=== PATIENT | female | born 1955 | race Caucasian/White ===

== ENCOUNTER → 2016-04-18 | Outpatient (CLI) | payer BC ==
[2016-04-18 11:22] LABS: CHCM 32.9; HDW 2.57; HGB 15.1 gm/dL (11.4-16.0); MCH 30.1 pg (25.0-35.0); MCHC 32.9 g/dL (31.0-37.0); MCV 91.5 fL (80.0-100.0); Mean Platelet Volume 6.7; RBC 5.03 m/uL (3.80-5.40); RDW 13.3 % (11.5-15.5); WBC 7.2 k/uL (3.8-10.6)
[2016-04-18 11:38] LABS: ALT 37 U/L (9-52); AST 25 U/L (14-36); Alkaline Phosphatase 83 U/L (38-126); Anion Gap 12 mmol/L; Blood Urea Nitrogen 16 mg/dL (7-17); Calcium 9.5 mg/dL (8.4-10.2); Carbon Dioxide 29 mmol/L (22-30); Chloride 102 mmol/L (98-107); Cholesterol 238 mg/dL (<200); Glucose 103 mg/dL (74-99); HDL Cholesterol 54 mg/dL (40-60); Non-African American GFR(MDRD) 57 (>60 ml/min/1.73 sqM); Potassium 4.7 mmol/L (3.5-5.1); Sodium 143 mmol/L (137-145); Total Bilirubin 0.5 mg/dL (0.2-1.3); Total Protein 7.8 g/dL (6.3-8.2); Triglycerides 160 mg/dL (<150)
== END | disposition home or self-care (01) ==
LOC: LABWHC1 10:30
PROVIDERS: ATTEND Internal Medicine
DX: I11.9 Hypertensive heart disease without heart failure (principal); E78.2 Mixed hyperlipidemia; E03.9 Hypothyroidism, unspecified
CPT/HCPCS: 36415; 80053; 80061; 84439; 84443; 85027

== ENCOUNTER → 2016-07-10 | Outpatient (CLI) | payer BC ==
--- NOTE | 2016-07-12 07:51 | MM ---
Reason for exam: screening (asymptomatic). Last mammogram was performed 1 year ago. History: Patient is postmenopausal. Physical Findings: A clinical breast exam by your physician is recommended on an annual basis and results should be correlated with mammographic findings. MG Screening Mammo w CAD Bilateral CC and MLO view(s) were taken. Prior study comparison: July 02, 2015, bilateral MG 3d screening mammo w/cad. January 28, 2014, bilateral MG screening mammo w CAD. November 13, 2012, bilateral digital screening mammo w/CAD. There are scattered fibroglandular densities. A lobulated nodule far posteriorly left breast likely represents an axillary lymph node previously not included. This can be reassessed in 6 months. ASSESSMENT: Probably benign, BI-RAD 3 RECOMMENDATION: Follow-up diagnostic mammogram of the left breast in 6 months.
== END ==
LOC: RADMAMWWP 15:11
PROVIDERS: ATTEND Internal Medicine
DX: Z12.31 Encounter for screening mammogram for malignant neoplasm of breast (principal)

== ENCOUNTER → 2016-09-19 | Outpatient (CLI) | payer BC ==
[2016-09-19 11:35] LABS: Anion Gap 11 mmol/L; Blood Urea Nitrogen 15 mg/dL (7-17); Calcium 8.9 mg/dL (8.4-10.2); Carbon Dioxide 27 mmol/L (22-30); Chloride 104 mmol/L (98-107); Cholesterol 229 mg/dL (<200); Glucose 108 mg/dL (74-99); HDL Cholesterol 51 mg/dL (40-60); Non-African American GFR(MDRD) >60 (>60 ml/min/1.73 sqM); Potassium 4.5 mmol/L (3.5-5.1); Sodium 142 mmol/L (137-145); Triglycerides 134 mg/dL (<150)
== END ==
LOC: LABWHC1 10:33
PROVIDERS: ATTEND Internal Medicine
DX: Z00.00 Encounter for general adult medical examination without abnormal findings (principal); I11.9 Hypertensive heart disease without heart failure; E78.2 Mixed hyperlipidemia; E03.9 Hypothyroidism, unspecified
CPT/HCPCS: 36415; 80048; 80061; 84439; 84443

== ENCOUNTER 2017-06-19 11:33 | Observation (INO) | payer BC ==
[2017-06-19] MEDS ORDERED: MORPHINE SULFATE/PF 10MG/10ML VL IVP STA (11:54)
[2017-06-19] MEDS ORDERED: NITROGLYCERIN OINT 1 INCH/GM PACKET TOPICAL STA (11:54)
[2017-06-19] MEDS ORDERED: ASPIRIN 81 MG PO STA (11:54)
[2017-06-19 12:15] LABS: Glucose,Whole Blood 105 mg/dL (75-99)
[2017-06-19 12:23] LABS: Basophils % (A) 0 %; Eosinophils # (A) 0.4 k/uL (0-0.7); Eosinophils % (A) 6 %; HCT 42.4 % (34.0-46.0); HGB 14.6 gm/dL (11.4-16.0); Lymphocytes # (A) 1.4 k/uL (1.0-4.8); Lymphocytes % (A) 24 %; MCH 29.7 pg (25.0-35.0); MCHC 34.4 g/dL (31.0-37.0); MCV 86.5 fL (80.0-100.0); Mean Platelet Volume 6.8; Monocytes # (A) 0.3 k/uL (0-1.0); Monocytes % (A) 6 %; Neutrophils # (A) 3.6 k/uL (1.3-7.7); Neutrophils % (A) 62 %; Platelet Count 245 k/uL (150-450); RDW 13.2 % (11.5-15.5); WBC 5.9 k/uL (3.8-10.6)
[2017-06-19 12:32] LABS: Partial Thromboplastin Time 23.8 sec (22.0-30.0); Prothrombin Time 10.2 sec (9.0-12.0)
[2017-06-19 12:35] LABS: Creatine Kinase 60 U/L (30-135)
[2017-06-19 12:37] LABS: Albumin 4.2 g/dL (3.5-5.0); Calcium 9.3 mg/dL (8.4-10.2); Magnesium 2.1 mg/dL (1.6-2.3); Total Bilirubin 0.4 mg/dL (0.2-1.3); Total Protein 7.6 g/dL (6.3-8.2)
[2017-06-19 12:42] LABS: Potassium 4.2 mmol/L (3.5-5.1)
[2017-06-19 12:46] LABS: Creatine Kinase MB 0.5 ng/mL (0.0-2.4); Troponin I <0.012 ng/mL (0.000-0.034)
--- NOTE | 2017-06-19 13:03 | XR ---
EXAMINATION TYPE: XR chest 2V DATE OF EXAM: 06/19/2017 COMPARISON: 12/20/2015 HISTORY: High blood pressure and chest pain TECHNIQUE: Frontal and lateral views of the chest are obtained. FINDINGS: Chronic left midlung and right midlung atelectasis are seen. Scattered subcentimeter granu fadia are incidentally identified. Cardiomediastinal silhouette is within normal limits. Osseous stru ctures are grossly intact with mild multilevel degenerative changes of the thoracic spine. No focal c onsolidation, pleural effusion or pneumothorax. IMPRESSION: Chronic findings with no acute cardiopulmonary process.
[2017-06-19] MEDS ORDERED: NITROGLYCERIN SL TABS 0.4 MG TAB SUBLINGUAL PRN (15:44)
--- NOTE | 2017-06-19 15:44 | ED ---
Chest Pain HPI - General Chief Complaint: Chest Pain Stated Complaint: Chest Pain Time Seen by Provider: 06/19/17 11:54 Source: patient, EMS Mode of arrival: EMS - History of Present Illness Initial Comments: 62 years old female had a chest pain episode at 11 AM, she was driving at the time she was quite short winded she got dizzy she has some cold sweats she denies any pleuritic chest pain with a and she has no history of coronary artery disease in the past she does have a history of hypertension blood pressure has been on the high side. She does have a history of family history of heart disease his mom had a CABG was of her siblings have a history of hypertension denies any abdominal pain no frequency urgency dysuria no symptoms of TIA or CVA - Related Data Home Medications Medication Instructions Recorded Confirmed Ascorbic Acid [Vitamin C] 500 mg PO DAILY 03/08/16 06/19/17 Aspirin [Adult Low Dose Aspirin EC] 81 mg PO DAILY 03/08/16 06/19/17 Atenolol [Tenormin] 50 mg PO DAILY 03/08/16 06/19/17 Cholecalciferol [Vitamin D3] 5,000 unit PO DAILY 03/08/16 06/19/17 Cyanocobalamin [Vitamin B-12] 1,000 mcg PO DAILY 03/08/16 06/19/17 Fish Oil/Dha/Epa [Fish Oil 1,200 1 cap PO BID 03/08/16 06/19/17 mg Fish Oil] Furosemide [Lasix] 20 mg PO DAILY 03/08/16 06/19/17 Glucosamine Sulfate 500 mg PO DAILY 03/08/16 06/19/17 Levothyroxine Sodium [Synthroid] 50 mcg PO DAILY 03/08/16 06/19/17 Montelukast [Singulair] 10 mg PO HS 03/08/16 06/19/17 Multivitamins, Thera [Multivitamin] 1 tab PO DAILY 03/08/16 06/19/17 Potassium Chloride [K-Tab ER] 10 meq PO DAILY 03/08/16 06/19/17 Ubidecarenone [Co Q-10] 100 mg PO DAILY 03/08/16 06/19/17 amLODIPine [Norvasc] 10 mg PO DAILY 06/19/17 06/19/17 Allergies Allergy/AdvReac Type Severity Reaction Status Date / Time amoxicillin Allergy Unknown Verified 06/19/17 12:05 Review of Systems ROS Statement: Those systems with pertinent positive or pertinent negative responses have been documented in the HPI. ROS Other: All systems not noted in ROS Statement are negative. EKG Findings - EKG Comments: EKG Findings:: EKG is normal sinus rhythm ventricular rate is 66 [place] interval is 168 QRS duration is 88 QT/QTc is 440/434 review of this EKG showed some flattening of the T-wave slight ST depression in lead [address] elevation noticed Past Medical History Past Medical History: GERD/Reflux, Hypertension, Thyroid Disorder History of Any Multi-Drug Resistant Organisms: None Reported Past Surgical History: Orthopedic Surgery Additional Past Surgical History / Comment(s): lt foot bunionectomy and pin to toe Past Anesthesia/Blood Transfusion Reactions: No Reported Reaction Smoking Status: Never smoker Past Alcohol Use History: Occasional Past Drug Use History: None Reported - Past Family History Mother Family Medical History: Cancer Additional Family Medical History / Comment(s): cervical ca Father Family Medical History: Cancer Additional Family Medical History / Comment(s): nonhodgkins lymphoma Sister(s) Family Medical History: Neurologic Disorder Additional Family Medical History / Comment(s): MS Course Vital Signs 06/19/17 06/19/17 06/19/17 11:42 12:49 14:00 Temperature 97.4 F L Pulse Rate 70 62 60 Respiratory 16 16 18 Rate Blood Pressure 174/84 147/81 144/82 O2 Sat by Pulse 98 98 99 Oximetry 06/19/17 15:00 Temperature Pulse Rate 61 Respiratory 18 Rate Blood Pressure 123/73 O2 Sat by Pulse 97 Oximetry She is reassessed she is pain-free, CBC, INR, troponin, EKG, compressive metabolic panel, chest x-ray are unremarkable she has a few risk factors she is above 50, she has a history of hypertension and has a family history of heart disease she be hospitalized under Dr. Lal regimen cardiology be consulted for 3 sets of cardiac markers Disposition Clinical Impression: Chest pain Disposition: ADMITTED IP TO THIS HOSP Condition: Good Referrals: Jeronimo Lal MD [Primary Care Provider] - 1-2 days
[2017-06-19 16:37] VITALS: RESP 16
[2017-06-19] MEDS ORDERED: DIAZEPAM 5 MG TAB PO PRN (17:00)
[2017-06-19] MEDS ORDERED: PNEUMOCOCCAL VACC-PNEUMOVAX 23 25 MCG/0.5 ML VIAL IM ONE (17:38)
[2017-06-19 19:13] LABS: Creatine Kinase 54 U/L (30-135)
[2017-06-19] MEDS ORDERED: RX INFO: IV CONTRAST WAS GIVEN 1 EACH MISC MISCELLANE PRN (19:15)
[2017-06-19 19:27] LABS: Creatine Kinase MB 0.5 ng/mL (0.0-2.4); Troponin I <0.012 ng/mL (0.000-0.034)
--- NOTE | 2017-06-19 20:14 | US ---
EXAMINATION TYPE: US carotid duplex BILAT DATE OF EXAM: 06/19/2017 COMPARISON: NONE CLINICAL HISTORY: check carotids . Chest pain and dizziness. EXAM MEASUREMENTS: RIGHT: Peak Systolic Velocity (PSV) cm/sec ----- Right CCA: 37.4 ----- Right ICA: 63.3 ----- Right ECA: 56.8 ICA/CCA ratio: 1.7 RIGHT: End Diastole cm/sec ----- Right CCA: 10.2 ----- Right ICA: 27.0 ----- Right ECA: 10.2 LEFT: Peak Systolic Velocity (PSV) cm/sec ----- Left CCA: 71.3 ----- Left ICA: 59.4 ----- Left ECA: 48.8 ICA/CCA ratio: 0.8 LEFT: End Diastole cm/sec ----- Left CCA: 18.4 ----- Left ICA: 18.4 ----- Left ECA: 6.5 VERTEBRALS (direction of flow): Right Vertebral: Antegrade Left Vertebral: Antegrade Rhythm: Normal IMPRESSION: 1. BILATERAL ICA DIVES DEEP. 2. NO SIGNIFICANT STENOSIS SEEN.
[2017-06-19] MEDS ORDERED: MONTELUKAST 10 MG TAB PO SCH (21:00)
[2017-06-19] MEDS ORDERED: NON-FORMULARY DRUG (Fish Oil/Dha/Epa [Fish Oil 1,200 Mg Fish Oil] 1 CAP) PO SCH (21:00)
--- NOTE | 2017-06-19 21:44 | CT ---
EXAMINATION TYPE: CT angio chest with contrast and with 3-D reconstruction renderings DATE OF EXAM: 06/19/2017 8:16 PM COMPARISON: NONE HISTORY: Chest pain. CT DLP: 623 mGycm Automated exposure control for dose reduction was used. CONTRAST: CTA scan of the thorax is performed with IV Contrast, patient injected with 100ml mL of Omnipaque 350 , pulmonary embolism protocol. 3-D Reconstruction rendering. FINDINGS: LUNGS: The lungs are grossly clear, there is no concerning parenchymal mass or nodule identified. T here is no pleural effusion or pneumothorax seen. The tracheobronchial tree is patent. MEDIASTINUM: There is satisfactory enhancement of the pulmonary artery and its branches, there is no CT evidence for pulmonary embolism. There is no cardiomegaly. No pericardial effusion. There are no g reater than 1 cm hilar or mediastinal lymph nodes. Calcified right hilar lymph nodes are noted, along with subcentimeter right upper lobe pulmonary calcifications, consistent with healed granulomatous p rocess. OTHER: No additional significant abnormality is seen. IMPRESSION: NO ACUTE PROCESS.
--- NOTE | 2017-06-19 23:38 | HP ---
HISTORY AND PHYSICAL DATE OF ADMISSION: 06/19/2017 CHIEF COMPLAINT: Chest pain. This is a 62-year-old white female who was brought to the emergency room with complaints of chest pain associated with the shortness of breath. The patient was driving and she suddenly felt severe anterior chest pain. The pain was kind of sharp pain, radiating across the anterior chest wall and also had some pain in the left and right arm and she also felt some dizziness and she [place] over to the side of the [place] and then called 911 and she was brought to the emergency room. The patient had some diaphoresis and she continued to have the pain when she arrived in the emergency room and she was evaluated in the ER. Her EKG was normal and cardiac enzymes were within normal limits and her blood pressure was slightly high at the time of time of arrival. Chest x-ray was unremarkable. CBC showed a WBC count of 5.9, hemoglobin of 4.6 and platelet count 245,000. Sodium 143, potassium 4.2, BUN 11 and creatinine 0.82. Blood sugar 107. The patient was admitted to the hospital for further evaluation and treatment. PAST MEDICAL HISTORY: Reveals that she has a long-standing history of hypertension and also has hypothyroidism, morbid obesity. CURRENT MEDICATIONS: Include: 1. Aspirin 81 mg p.o. daily. 2. Atenolol 50 mg daily. 3. Lasix 20 mg daily. 4. Synthroid 50 mcg daily and. 5. Singulair 10 mg daily. 6. Potassium chloride 10 mEq daily. 7. Norvasc 10 mg daily and she is also on. 8. Multivitamins, including vitamin C, vitamin D, vitamin B12 and. 9. Fish oil. She has had no major surgery in the past. She has no known drug allergies. She does not smoke and she does not drink alcohol. FAMILY HISTORY: Positive for heart disease. REVIEW OF SYSTEMS: Patient denies any headache. Appetite has been good. Bowels regular. She has had the chest pain as mentioned before. The patient has been getting recurrent chest pain like this for the past couple of weeks. She has no abdominal pain. She has no polyuria or dysuria. She has no neurological symptoms. PHYSICAL EXAMINATION: Reveals a 62-year-old white female, morbidly obese. She is alert and oriented. She is in no acute distress now. There is no jaundice. There is no generalized lymphadenopathy. There are no no petechia or bruises. Her pulse is 70 per minute, regular. Blood pressure in the ER was 174/84. Temperature 97.4, pulse ox of 98. ENT: Negative. Neck is supple. There is no jugular venous distention. There is no goiter and there is no carotid bruit. Heart is in sinus rhythm. Lungs are clear to auscultation and percussion. ABDOMEN: Soft and nontender. There is no mass palpable. Lower extremities reveal no pitting edema. Neurologic reveals no localizing signs. IMPRESSION: 1. Chest pain, rule out unstable angina. 2. Rule out pulmonary embolism. 3. Hypertensive cardiovascular disease. 4. Hypothyroidism. 5. Obesity. 6. Degenerative arthritis, multiple joints. 7. History of gastroesophageal reflux disease. PLAN: Patient will be admitted to the hospital, get serial EKGs and cardiac enzymes. Will also get a cardiology consultation. Will check the D-dimer and if it is positive, we will get a CT angio. Prognosis guarded. The diagnosis, prognosis and therapeutic plans were discussed in detail with the patient today. MMODL / IJN: [id number] /
[2017-06-20 01:01] LABS: Creatine Kinase 50 U/L (30-135)
[2017-06-20 01:02] LABS: Cholesterol 215 mg/dL (<200); HDL Cholesterol 54 mg/dL (40-60); LDL Cholesterol,Calculated 140 mg/dL (0-99); Triglycerides 105 mg/dL (<150)
[2017-06-20 01:15] LABS: Creatine Kinase MB 0.4 ng/mL (0.0-2.4); Troponin I <0.012 ng/mL (0.000-0.034)
[2017-06-20] MEDS ORDERED: LEVOTHYROXINE 50 MCG TAB PO SCH (06:30)
[2017-06-20] MEDS ORDERED: CHOLECALCIFEROL 1,000 UNIT TAB PO SCH (09:00)
[2017-06-20] MEDS ORDERED: CYANOCOBALAMIN 500 MCG TAB PO SCH (09:00)
[2017-06-20] MEDS ORDERED: amLODIPine 10 MG TAB PO SCH (09:00)
[2017-06-20] MEDS ORDERED: ATENOLOL 50 MG TAB PO SCH (09:00)
[2017-06-20] MEDS ORDERED: ASPIRIN 325 MG TAB PO SCH (09:00)
[2017-06-20] MEDS ORDERED: NON-FORMULARY DRUG (Ubidecarenone [Co Q-10] 100 MG) PO SCH (09:00)
[2017-06-20] MEDS ORDERED: ASPIRIN 81 MG PO SCH (09:00)
[2017-06-20] MEDS ORDERED: FUROSEMIDE 20 MG TAB PO SCH (09:00)
[2017-06-20] MEDS ORDERED: NON-FORMULARY DRUG (Glucosamine Sulfate 500 MG) PO SCH (09:00)
[2017-06-20] MEDS ORDERED: ASCORBIC ACID 500 MG TAB PO SCH (09:00)
[2017-06-20] MEDS ORDERED: POTASSIUM CHLORIDE ER 10 MEQ TAB.ER.PRT PO SCH (09:00)
[2017-06-20 11:43] VITALS: BP 123/72; PULSE 76; TEMP 97.3
--- NOTE | 2017-06-20 11:52 | CONS ---
CONSULTATION This is a 62-year-old lady with a history of hypertensive cardiovascular disease and hypothyroidism, who also has stable underlying bronchial asthma. She came into the hospital yesterday because she was driving to get an allergy shot and she started having some sharp fleeting pain in the chest, very intense that seemed to radiate from the left shoulder to the right shoulder across the chest lasting 15 seconds. She felt very concerned, called 911 and came into the hospital. After arrival, her D-dimer was borderline and she had a CT angiography performed, which did not reveal any evidence of pulmonary embolism. She has also had a carotid Doppler which was unremarkable. She is resting comfortably without symptoms, has no further chest pain. She is asymptomatic. She does have a significant risk factor profile, but her pain is quite atypical. She is resting comfortably without symptoms. Her EKG revealed a sinus mechanism with minor nonspecific ST abnormality. No acute changes were noted. PAST MEDICAL HISTORY: 1. Hypertension. 2. Bronchial asthma. 3. History of some hypothyroidism on replacement therapy. MEDICATIONS: At home include Singulair 10 mg daily, Norvasc 10 mg daily, potassium 10 mEq daily, levothyroxine 50 mcg daily, glucosamine, Lasix 20 mg daily, vitamin supplements, aspirin 81 mg daily, atenolol 50 mg daily. ALLERGIES: AMOXICILLIN and OTHER PENICILLINS. PHYSICAL EXAMINATION: Blood pressure is 128/70, pulse rate is about 70 per minute, regular. HEENT: Unremarkable. Fundus was not examined by me. NECK: Supple. No JVD. I do not hear a carotid bruit. There is no thyromegaly. Heart exam reveals S1, S2 heard normally. No rub, murmur or gallop. Lungs are clear. Abdomen is soft, nontender. Lower extremities reveal normal pulses, no edema. Central nervous system is normal. EKG revealed sinus mechanism, no acute changes. IMPRESSION: 1. Atypical chest pain. 2. Hypertension. 3. Hypercholesterolemia. 4. Stable bronchial asthma. 5. Hypothyroidism. RECOMMENDATION: I am recommending that we increase activity and proceed with the echocardiogram and a stress echo and if these are normal, she can be discharged. Her resting heart rate is somewhat low and she is on atenolol, but she took this about 24 hours ago. If the stress echo is normal, she can be discharged. I discussed my thoughts in detail with the patient. Thank you very much for the consult. MMODL / IJN: [id number] /
[2017-06-20] MEDS ORDERED: MULTIVITAMINS, THERA 1 EACH TAB PO SCH (12:00)
--- NOTE | 2017-06-20 12:07 | ECHOS ---
STRESS ECHOCARDIOGRAM DATE OF SERVICE: 06/20/2017 INDICATIONS: Chest pain. MEDICATIONS: BASELINE HEART RATE: 79 BASELINE BLOOD PRESSURE: 117/61 MAXIMUM HEART RATE: 143 MAXIMUM BLOOD PRESSURE: 200/58 85% MPHR: 135 100% MPHR: 159 METS: 8.5 MAXIMUM STAGE REACHED: III TOTAL EXERCISE TIME: 7 minutes CLINICAL INFORMATION: Baseline EKG revealed normal sinus rhythm with minor nonspecific ST abnormality. Patient walked on a standard Osman protocol for a total duration of 7 minutes, achieved a maximal heart rate of 143 beats per minute which is more than 85% of predicted maximal. She developed fatigue and shortness of breath but did not have any anginal symptoms. EKG revealed nonspecific ST depression making this an inconclusive stress test because of minor resting EKG changes. There was no angina or arrhythmia. By EKG criteria, this is an inconclusive stress test because of minor resting EKG changes. Baseline echo images revealed normal wall motion and wall thickening of all segments. At peak exercise, there was good augmentation of left ventricular wall motion and wall thickening of all segments suggesting that there is no evidence of stress-induced ischemia on this study. IMPRESSION: 1. Fair exercise capacity with inconclusive stress test by EKG criteria because of minor resting EKG changes to begin with. Patient did not have angina or arrhythmia. 2. Normal stress echocardiogram. MMODL / IJN: [id number] /
[2017-06-20] MEDS: ATORVASTATIN 20 MG TAB PO SCH ×2 (12:25)
== END 2017-06-20 15:30 | disposition home or self-care (01) ==
LOC: EC 11:33 → 3OBS 15:44
PROVIDERS: ADMIT Internal Medicine; ATTEND Internal Medicine
DX: R07.89 Other chest pain (principal); I11.9 Hypertensive heart disease without heart failure; E03.9 Hypothyroidism, unspecified; E66.01 Morbid (severe) obesity due to excess calories; Z68.33 Body mass index [BMI] 33.0-33.9, adult; J45.909 Unspecified asthma, uncomplicated; E78.00 Pure hypercholesterolemia, unspecified; K21.9 Gastro-esophageal reflux disease without esophagitis; M13.0 Polyarthritis, unspecified; Z79.82 Long term (current) use of aspirin; Z79.899 Other long term (current) drug therapy; Z88.0 Allergy status to penicillin; Z80.49 Family history of malignant neoplasm of other genital organs; Z82.49 Family history of ischemic heart disease and other diseases of the circulatory system; Z80.7 Family history of other malignant neoplasms of lymphoid, hematopoietic and related tissues; Z82.0 Family history of epilepsy and other diseases of the nervous system; Z23 Encounter for immunization
CPT/HCPCS: 99285 ×2; 36415; 93005; 93017; 93306; 93350; 85379; 80061; 80053; 82550; 82553; 83735; 84484; 85025; 85610; 85730; 71046; 93880; 71275; 90732; G0378 ×2; G0009; Q9967

== ENCOUNTER → 2017-07-09 | Outpatient (CLI) | payer BC ==
--- NOTE | 2017-07-10 09:58 | US ---
EXAMINATION TYPE: US thyroid st tissue head/neck DATE OF EXAM: 07/09/2017 COMPARISON: NONE CLINICAL HISTORY: R94.6 Abnormal results of thyroid function studies; on thyroid medication and feels neck fullness per patient GLAND SIZE: Right Lobe: 3.7 x 1.3 x 1.9 cm Overall Parenchyma: heterogenous Left Lobe: 3.6 x 1.5 x 1.6 cm Overall Parenchyma: heterogeneous Isthmus Thickness: 0.5 cm NODULES RIGHT: # of nodules measured on right: 0 Inferior to right thyroid is oval hypoechoic mass = 0.8 x 0.6 x 0.7cm and could represent parathyroid nodule or lymph node. LEFT: # of nodules measured on left: 0 ISTHMUS: # of nodules measured in the isthmus: 0 IMPRESSION: 1. Visualized thyroid appears unremarkable. 2. Parathyroid likely at the inferior right lobe thyroid. This will be within the differential.
== END | disposition home or self-care (01) ==
LOC: RADUSWWP 16:00
PROVIDERS: ATTEND Internal Medicine
DX: R94.6 Abnormal results of thyroid function studies (principal)
CPT/HCPCS: 76536

== ENCOUNTER → 2017-09-13 | Outpatient (CLI) | payer BC ==
[2017-09-13 11:13] LABS: T4, Free (Free Thyroxine) 1.34 ng/dL (0.78-2.19)
== END | disposition home or self-care (01) ==
LOC: LABWHC1 10:06
PROVIDERS: ATTEND Internal Medicine
DX: E78.2 Mixed hyperlipidemia (principal); E03.9 Hypothyroidism, unspecified
CPT/HCPCS: 36415; 80061; 82550; 84439; 84443; 84450; 84460

== ENCOUNTER → 2018-02-01 | Outpatient (CLI) | payer BC ==
[2018-02-01 12:01] LABS: HCT 41.5 % (34.0-46.0); HGB 13.4 gm/dL (11.4-16.0); MCH 29.4 pg (25.0-35.0); MCHC 32.2 g/dL (31.0-37.0); MCV 91.2 fL (80.0-100.0); Mean Platelet Volume 6.8; Platelet Count 277 k/uL (150-450); RBC 4.54 m/uL (3.80-5.40); RDW 13.6 % (11.5-15.5); WBC 6.3 k/uL (3.8-10.6)
[2018-02-01 22:49] LABS: Albumin 4.2 g/dL (3.80-4.90); Albumin/Globulin Ratio 1.91 (1.20-2.10); Anion Gap 4.7 mmol/L (4.00-12.00); Calcium 8.8 mg/dL (8.7-10.3); Carbon Dioxide 31.3 mmol/L (21.6-31.8); Globulin 2.2 g/dL (2.1-3.7); Potassium 4.5 mmol/L (3.5-5.5); Total Bilirubin 0.5 mg/dL (0.3-1.2); Total Protein 6.4 g/dL (6.2-8.2)
[2018-02-01 22:57] LABS: T4, Free (Free Thyroxine) 1.3 ng/dL (0.80-1.80)
== END | disposition home or self-care (01) ==
LOC: LABWHC1 10:51
PROVIDERS: ATTEND Internal Medicine
DX: Z00.00 Encounter for general adult medical examination without abnormal findings (principal); E03.9 Hypothyroidism, unspecified; I11.9 Hypertensive heart disease without heart failure; E78.2 Mixed hyperlipidemia; K21.0 Gastro-esophageal reflux disease with esophagitis
CPT/HCPCS: 36415; 80053; 80061; 82272; 84439; 84443; 85027

== ENCOUNTER → 2018-06-30 | Outpatient (CLI) | payer BC ==
--- NOTE | 2018-07-02 09:00 | MM ---
Reason for exam: screening (asymptomatic). Last mammogram was performed 1 year and 5 months ago. History: Patient is postmenopausal. Physical Findings: A clinical breast exam by your physician is recommended on an annual basis and results should be correlated with mammographic findings. MG Screening Mammo w CAD Bilateral CC and MLO view(s) were taken. Prior study comparison: January 24, 2017, left breast MG diagnostic mammo LT w CAD. July 10, 2016, bilateral MG screening mammo w CAD. There are scattered fibroglandular densities. No significant changes when compared with prior studies. ASSESSMENT: Negative, BI-RAD 1 RECOMMENDATION: Routine screening mammogram of both breasts in 1 year.
== END | disposition home or self-care (01) ==
LOC: RADMAMWWP 09:34
PROVIDERS: ATTEND Obstetrics & Gynecology
DX: Z12.31 Encounter for screening mammogram for malignant neoplasm of breast (principal)
CPT/HCPCS: 77067

== ENCOUNTER → 2018-12-29 | Outpatient (CLI) | payer BC ==
[2018-12-29 20:44] LABS: Gliadin AB IgA, Deaminated NEGATIVE (NEGATIVE); Gliadin AB IgA, Unit 0.6 U/mL; Gliadin AB IgG, Deaminated NEGATIVE (NEGATIVE)
== END | disposition home or self-care (01) ==
LOC: LABWHC1 11:09
PROVIDERS: ATTEND Nurse Practitioner
DX: R19.7 Diarrhea, unspecified (principal)
CPT/HCPCS: 36415; 83516; 83630; 87045; 87046; 87328; 87329

== ENCOUNTER → 2019-05-01 | Outpatient (CLI) | payer BC ==
--- NOTE | 2019-05-01 13:25 | XR ---
EXAMINATION TYPE: XR cervical spine w flex/ext DATE OF EXAM: 05/01/2019 TECHNIQUE: Frontal, lateral, oblique, swimmers, and open mouth view of the cervical spine are obtaine d. Flexion-extension lateral images were also obtained. HISTORY: M54.12 cervical radiculopathy COMPARISON: None FINDINGS: There is straightening of the usual cervical lordosis. There is very minimal retrolisthesis of C5 on C6 that is unchanged in extension and flexion. Intervertebral disc space narrowing is seen of C4-C5, C5-C6 and C6-C7. No abnormal prevertebral soft tissue swelling. Multilevel facet arthropath y and uncovertebral hypertrophy are also seen creating mild neural foraminal narrowing at C4-C5 and C 5-C6 on the left and at C5-C6 and C6-C7 on the right radiographically. Odontoid appears intact. IMPRESSION: 1. No acute fracture is seen in the cervical spine. 2. Moderate multilevel degenerative disc disease of the cervical spine. 3. Minimal retrolisthesis of C5 on C6, likely on a degenerative basis that does not change in flexion or extension.
== END | disposition home or self-care (01) ==
LOC: RADXRMAIN 12:28
PROVIDERS: ATTEND Family Medicine
DX: M50.10 Cervical disc disorder with radiculopathy, unspecified cervical region (principal); M43.16 Spondylolisthesis, lumbar region
CPT/HCPCS: 72052

== ENCOUNTER → 2019-12-14 | Outpatient (CLI) | payer BC ==
--- NOTE | 2019-12-14 22:57 | MR ---
MRI CERVICAL SPINE: CLINICAL HISTORY: C7 and C8 radiculopathy per order. TECHNIQUE: Multiplanar, multisequence imaging of the cervical spine is performed without and with IV contrast, 8.5 cc of gadolinium was given intravenously. COMPARISON: Cervical spine x-ray May 01, 2019. FINDINGS: Sagittal images of the cervical spine show the craniocervical junction to appear within nor mal limits. The cervical and upper thoracic spinal cord is normal in course, caliber, and signal. Gr taisha 1 retrolisthesis C4 on C5 and C5 on C6 and to lesser degree C6 on C7. Persistent moderate disc sp gonzalo narrowing and mild to moderate anterior spurring C4-C5 through C6-C7 levels. The vertebral body h eights remain normal. The bone marrow signal intensity is within normal limits. No suspicious postco ntrast enhancement. Axial images show the C2-C3 and C3-C4 levels to appear within normal limits. Axial images at C4-C5 level show spondylolisthesis with broad-based posterior disc protrusion mildly facing anterior thecal sac and causing moderate left and mild right-sided neural foraminal narrowing. Axial images at C5-C6 level show spondylolisthesis with broad-based posterior disc protrusion effacin g anterior thecal sac and causing moderate to severe left and mild to moderate right-sided neural for aminal narrowing. Axial images at C6-C7 level showed broad based left paracentral disc protrusion effacing the anterior thecal sac, there is [id number] right-sided neural foraminal narrowing. Left-sided neural fora men is patent. Axial images at C7-T1 level show focal right paracentral/foraminal disc protrusion effacing intrathec al sac and causing asymmetric moderate right-sided neural foraminal narrowing on axial image 8. IMPRESSION: Multilevel spondylolisthesis and degenerative changes in the mid to lower cervical spine as detailed above.
== END | disposition home or self-care (01) ==
LOC: RADMRIMAIN 05:53
PROVIDERS: ATTEND Family Medicine
DX: M43.12 Spondylolisthesis, cervical region (principal); M47.22 Other spondylosis with radiculopathy, cervical region
CPT/HCPCS: 72156; A9585

== ENCOUNTER → 2020-06-15 | Outpatient (CLI) | payer BC ==
[2020-06-15 18:10] LABS: Basophils # (A) 0.03 X 10*3/uL (0.00-0.10); Basophils % (A) 0.5 %; Eosinophils # (A) 0.38 X 10*3/uL (0.04-0.35); Eosinophils % (A) 6.7 %; HCT 43.6 % (37.2-46.3); HGB 13.9 g/dL (12.0-15.0); Lymphocytes # (A) 1.49 X 10*3/uL (0.90-5.00); Lymphocytes % (A) 26.1 %; MCH 29.7 pg (27.0-32.0); MCHC 31.9 g/dL (32.0-37.0); MCV 93.2 fL (80.0-97.0); Mean Platelet Volume 9.4 fL (9.5-12.2); Monocytes # (A) 0.49 X 10*3/uL (0.20-1.00); Monocytes % (A) 8.6 %; Neutrophils % (A) 57.9 %; Platelet Count 242 X 10*3/uL (140-440); RBC 4.68 X 10*6/uL (4.10-5.20)
[2020-06-16 01:21] LABS: African American GFR (CKD) 78.3 (60.0-200.0); Albumin 4.4 g/dL (3.80-4.90); Albumin/Globulin Ratio 1.91 (1.60-3.17); Anion Gap 10.9 mmol/L (4.00-12.00); BUN/Creat Ratio 18.89 Ratio (12.00-20.00); Carbon Dioxide 26.1 mmol/L (21.6-31.8); Chol/HDL Ratio 2.56; Globulin 2.3 g/dL (1.6-3.3); LDL Cholesterol,Calculated 81.2 mg/dL (0.0-131.0); Non-African American GFR(CKD) 67.6 (60.0-200.0); Potassium 4.7 mmol/L (3.5-5.5); Total Bilirubin 0.5 mg/dL (0.2-1.2); Total Protein 6.7 g/dL (6.2-8.2); VLDL Calculation 15.8 mg/dL (5.00-40.00)
== END | disposition home or self-care (01) ==
LOC: LABWHC1 09:42
PROVIDERS: ATTEND Family Medicine
DX: Z12.31 Encounter for screening mammogram for malignant neoplasm of breast (principal); E03.9 Hypothyroidism, unspecified; I10 Essential (primary) hypertension; R42 Dizziness and giddiness
CPT/HCPCS: 36415; 80053; 80061; 84443; 85025

== ENCOUNTER → 2020-07-21 | Outpatient (CLI) | payer BC ==
--- NOTE | 2020-07-22 11:57 | MM ---
Reason for exam: screening (asymptomatic). Last mammogram was performed 2 years and 1 month ago. History: Patient is postmenopausal. Physical Findings: A clinical breast exam by your physician is recommended on an annual basis and results should be correlated with mammographic findings. MG Screening Mammo w CAD Bilateral CC and MLO view(s) were taken. Prior study comparison: June 30, 2018, bilateral MG screening mammo w CAD. January 24, 2017, left breast MG diagnostic mammo LT w CAD. The breast tissue is heterogeneously dense. This may lower the sensitivity of mammography. There is no discrete abnormality. No significant changes when compared with prior studies. ASSESSMENT: Negative, BI-RAD 1 RECOMMENDATION: Routine screening mammogram of both breasts in 1 year.
== END | disposition home or self-care (01) ==
LOC: RADMAMWWP 08:45
PROVIDERS: ATTEND Family Medicine
DX: Z12.31 Encounter for screening mammogram for malignant neoplasm of breast (principal)
CPT/HCPCS: 77067

== ENCOUNTER → 2021-07-26 | Outpatient (CLI) | payer MEDICARE ==
--- NOTE | 2021-07-27 10:59 | MM ---
Reason for exam: screening (asymptomatic). Last mammogram was performed 1 year ago. History: Patient is postmenopausal. Physical Findings: A clinical breast exam by your physician is recommended on an annual basis and results should be correlated with mammographic findings. MG 3D Screening Mammo W/Cad Bilateral CC and MLO view(s) were taken. Prior study comparison: July 21, 2020, bilateral MG screening mammo w CAD. June 30, 2018, bilateral MG screening mammo w CAD. There are scattered fibroglandular densities. No significant changes when compared with prior studies. ASSESSMENT: Benign, BI-RAD 2 RECOMMENDATION: Routine screening mammogram of both breasts in 1 year.
== END | disposition home or self-care (01) ==
LOC: RADMAMWWP 09:55
PROVIDERS: ATTEND Obstetrics & Gynecology
DX: Z12.31 Encounter for screening mammogram for malignant neoplasm of breast (principal); Z78.0 Asymptomatic menopausal state
CPT/HCPCS: 77063; 77067

== ENCOUNTER → 2021-09-22 | Outpatient (CLI) | payer MEDICARE ==
--- NOTE | 2021-09-22 07:39 | CT ---
EXAMINATION TYPE: CT sinus wo con DATE OF EXAM: 09/22/2021 COMPARISON: None HISTORY: Nasal polyps CT DLP: 635.[address] of the paranasal sinuses was performed in the axial and coronal planes. Bone and soft tissue settings are submitted. There is mucosal thickening involving the bilateral maxillary sinuses, ethmoid air cells left frontal sinus and sphenoid sinus. There is obstruction of the left ostiomeatal unit. The right ostiomeatal u nit is patent. The nasal septum is midline. No bony destructive changes are seen within the field of view. IMPRESSION: Pansinusitis. Underlying polyposis is difficult to exclude.
== END | disposition home or self-care (01) ==
LOC: RADCTMAIN 07:00
PROVIDERS: ATTEND Otolaryngology
DX: J33.9 Nasal polyp, unspecified (principal); J32.4 Chronic pansinusitis
CPT/HCPCS: 70486

== ENCOUNTER → 2022-08-14 | Outpatient (CLI) | payer MEDICARE ==
--- NOTE | 2022-08-15 08:22 | MM ---
Reason for Exam: Screening (asymptomatic). Last mammogram was performed 1 year(s) and 1 month(s) ago. Patient History: Menarche at age 11. First Full-Term at age 20. Postmenopausal. Risk Values: Anahi 5 year model risk: 1.3%. NCI Lifetime model risk: 4.8%. Prior Study Comparison: 06/30/2018 Bilateral Screening Mammogram, [facility]. 07/21/2020 Bilateral Screening Mammogram, [facility]. 07/26/2021 Bilateral Screening Mammogram, [facility]. Tissue Density: The breast tissue is heterogeneously dense. This may lower the sensitivity of mammography. Findings: Analyzed By CAD. There is no suspicious group of microcalcifications or new suspicious mass in either breast. Chronic nodularity within the right breast. Benign vascular calcifications within both breasts. Overall Assessment: Benign, BI-RAD 2 Management: Screening Mammogram of both breasts in 1 year. A clinical breast exam by your physician is recommended on an annual basis and results should be correlated with mammographic findings. Electronically signed and approved by: Guzman Gallardo D.O.
== END | disposition home or self-care (01) ==
LOC: RADMAMWWP 10:12
PROVIDERS: ATTEND Family Medicine
DX: Z12.31 Encounter for screening mammogram for malignant neoplasm of breast (principal); Z78.0 Asymptomatic menopausal state
CPT/HCPCS: 77063; 77067

== ENCOUNTER → 2023-08-16 | Outpatient (CLI) | payer MEDICARE ==
--- NOTE | 2023-08-19 13:20 | MM ---
Reason for Exam: Screening (asymptomatic). Last screening mammogram was performed 12 month(s) ago. Patient History: Menarche at age 11. First Full-Term at age 20. Postmenopausal. Patient has history of breast feeding. Mother had breast cancer, age 88. Risk Values: Anahi 5 year model risk: 3.5%. NCI Lifetime model risk: 11.5%. Prior Study Comparison: 07/21/2020 Bilateral Screening Mammogram, [facility]. 07/26/2021 Bilateral Screening Mammogram, [facility]. 08/14/2022 Bilateral MG 3D screening mammo w/cad, [facility]. Tissue Density: There are scattered areas of fibroglandular density. Findings: Analyzed By CAD. Right breast: There is no suspicious group of microcalcifications or new suspicious mass. Left breast: There is no suspicious group of microcalcifications or new suspicious mass. Overall Assessment: Negative, BI-RAD 1 Management: Screening Mammogram of both breasts in [address] [facility] will attempt to contact patient to return for supplemental views and ultrasound if indicated. Patient should continue monthly self-breast exams. A clinical breast exam by your physician is recommended on an annual basis. This exam should not preclude additional follow-up of suspicious palpable abnormalities. Note on Anahi scores and lifetime risk: 1. A Anahi score greater than 3% is considered moderate risk. If this is the case, consider specialist referral to assess eligibility for a risk reducing agent. 2. If overall lifetime risk for the development of breast cancer is 20% or higher, the patient may qualify for future screening with alternating mammogram and breast MRI. Electronically signed and approved by: Tay Davidson DO
== END | disposition home or self-care (01) ==
LOC: RADMAMWWP 10:51
PROVIDERS: ATTEND Family Medicine
DX: Z12.31 Encounter for screening mammogram for malignant neoplasm of breast (principal); Z78.0 Asymptomatic menopausal state; Z80.3 Family history of malignant neoplasm of breast
CPT/HCPCS: 77063; 77067

== ENCOUNTER → 2023-11-30 | Outpatient (CLI) | payer MEDICARE ==
[2023-12-01 06:40] LABS: Basophils # (A) 0.04 X 10*3/uL (0.00-0.10); Basophils % (A) 0.5 %; Eosinophils # (A) 0.52 X 10*3/uL (0.04-0.35); Eosinophils % (A) 7.1 %; HCT 43.7 % (37.2-46.3); HGB 14.2 g/dL (12.0-15.0); Lymphocytes # (A) 1.62 X 10*3/uL (0.90-5.00); MCHC 32.5 g/dL (32.0-37.0); MCV 92.4 FL (80.0-97.0); Mean Platelet Volume 9.7 FL (9.5-12.2); Monocytes # (A) 0.55 X 10*3/uL (0.20-1.00); Monocytes % (A) 7.5 %; NRBC Per 100 WBC 0 X 10*3/uL (0.00-0.01); Neutrophils % (A) 62.4 %; Platelet Count 237 X 10*3/uL (140-440); RBC 4.73 X 10*6/uL (4.10-5.20); RDW 13.3 % (11.5-14.5); WBC 7.37 X 10*3/uL (4.50-10.00)
[2023-12-01 07:07] LABS: ALT 22 U/L (8-44); AST 21 U/L (13-35); Albumin 4.3 g/dL (3.8-4.9); Albumin/Globulin Ratio 1.72 Ratio (1.60-3.17); Alkaline Phosphatase 95 U/L (41-126); Blood Urea Nitrogen 15.6 mg/dL (9.0-27.0); Calcium 9.1 mg/dL (8.7-10.3); Carbon Dioxide 28.4 mmol/L (21.6-31.8); Chloride 102 mmol/L (96-109); Chol/HDL Ratio 2.54 Ratio; Globulin 2.5 g/dL (1.6-3.3); Glucose 100 mg/dL (70-110); LDL Cholesterol,Calculated 80.9 mg/dL (0.0-131.0); Potassium 4.4 mmol/L (3.5-5.5); Sodium 140 mmol/L (135-145); Total Bilirubin 0.4 mg/dL (0.3-1.2); Total Protein 6.8 g/dL (6.2-8.2); VLDL Calculation 14.36 mg/dL (5.00-40.00)
== END ==
LOC: LABWHC1 09:48
PROVIDERS: ATTEND Family Medicine
DX: Z00.00 Encounter for general adult medical examination without abnormal findings (principal); E78.2 Mixed hyperlipidemia; I10 Essential (primary) hypertension; E03.9 Hypothyroidism, unspecified
CPT/HCPCS: 36415; 80053; 80061; 84443; 85025

== ENCOUNTER → 2024-08-19 | Outpatient (CLI) | payer MEDICARE ==
--- NOTE | 2024-08-19 10:50 | MM ---
Reason for Exam: Screening (asymptomatic). Last screening mammogram was performed 12 month(s) ago. Patient History: Menarche at age 11. First Full-Term at age 20. Postmenopausal. Patient has history of breast feeding. Mother had breast cancer, age 88. Risk Values: Anahi 5 year model risk: 3.5%. NCI Lifetime model risk: 11.0%. Prior Study Comparison: 07/10/2016 Bilateral Screening Mammogram, [facility]. 01/24/2017 Left Diagnostic Mammogram, [facility]. 06/30/2018 Bilateral Screening Mammogram, [facility]. 07/21/2020 Bilateral Screening Mammogram, [facility]. 07/26/2021 Bilateral Screening Mammogram, [facility]. 08/14/2022 Bilateral MG 3D screening mammo w/cad, [facility]. 08/16/2023 Bilateral MG 3D screening mammo w/cad, [facility]. Tissue Density: There are scattered areas of fibroglandular density. Findings: Analyzed By CAD. Right breast: There is no suspicious group of microcalcifications or new suspicious mass. Benign-appearing calcifications right breast. Left breast: There is no suspicious group of microcalcifications or new suspicious mass. Benign-appearing calcifications left breast. Overall Assessment: Benign, BI-RAD 2 Management: Screening Mammogram of both breasts in [address] [facility] will attempt to contact patient to return for supplemental views and ultrasound if indicated. Patient should continue monthly self-breast exams. A clinical breast exam by your physician is recommended on an annual basis. This exam should not preclude additional follow-up of suspicious palpable abnormalities. Note on Anahi scores and lifetime risk: 1. A Anahi score greater than 3% is considered moderate risk. If this is the case, consider specialist referral to assess eligibility for a risk reducing agent. 2. If overall lifetime risk for the development of breast cancer is 20% or higher, the patient may qualify for future screening with alternating mammogram and breast MRI. [facility], , 08/19/2024 10:47 AM. Electronically signed and approved by: Tay Davidson DO
--- NOTE | 2024-08-20 12:11 | BD ---
EXAMINATION TYPE: Axial Bone Density DATE OF EXAM: 08/19/2024 CLINICAL HISTORY: 69 years old Female. ICD-10 CODE: M85.88 Disorder of bone; M85.80 , Additional His tory: Height: 66 Weight: 226 FRAX RISK QUESTIONS: Secondary Osteoporosis: RISK FACTORS HISTORY OF: MEDICATIONS: Thyroid Medications: Which medication: Levothyroxine How Lon years EXAM MEASUREMENTS: Bone mineral densitometry was performed using the [employer] System. Bone mineral density as measured about the Lumbar spine is: ----- L1-L4(G/cm2): 1.287 T Score Values are as follows: ----- L1: 0.1 ----- L2: 0.3 ----- L3: 1.9 ----- L4: 1.0 ----- L1-L4: 0.9 Z Score Values are as follows: ----- L1: 0.5 ----- L2: 0.8 ----- L3: 2.3 ----- L4: 1.5 ----- L1-L4: 1.4 First dexa at [facility] Bone mineral density about the R hip (g/cm2): 0.937 Bone mineral density about the L hip (g/cm2): 0.979 T Score values are as follows: -----R Neck: -0.4 -----L Neck: -0.4 -----R Total: -0.6 -----L Total: -0.2 Z Score values are as follows: -----R Neck: 0.4 -----L Neck: 0.4 -----R Total: 0.0 -----L Total: 0.3 First dexa at [facility] FRAX%s: The graph provided illustrates a 7.0% chance for a major osteoporotic fx and a 0.4% chance fo r the hips probability for fx in 10 years time. IMPRESSION: Normal (Values between +1 and -1 indicate normal bone mass). Consider repeating this study in 5 year s or sooner if there is some new clinical indication. NOTE: T-SCORE=SD OF THE YOUNG ADULT MEAN. [facility], , 08/20/2024 12:08 PM
== END | disposition home or self-care (01) ==
LOC: RADMAMWWP 09:40
PROVIDERS: ATTEND Family Medicine
DX: Z12.31 Encounter for screening mammogram for malignant neoplasm of breast (principal); M85.88 Other specified disorders of bone density and structure, other site; M85.80 Other specified disorders of bone density and structure, unspecified site; R92.323 Mammographic fibroglandular density, bilateral breasts; R92.1 Mammographic calcification found on diagnostic imaging of breast; Z78.0 Asymptomatic menopausal state; Z80.3 Family history of malignant neoplasm of breast
CPT/HCPCS: 77063; 77067; 77080

== ENCOUNTER → 2024-09-08 | Outpatient (CLI) | payer MEDICARE ==
--- NOTE | 2024-09-08 14:24 | US ---
EXAMINATION TYPE: US venous doppler duplex LE LT DATE OF EXAM: 09/08/2024 2:09 PM COMPARISON: NONE CLINICAL INDICATION: Female, 69 years old with history of M79.662 PAIN IN LEFT LOWER LEG R22.42 LOCAL IZED SW; Left lower leg pain and swelling TECHNIQUE: The lower extremity deep venous system is examined utilizing real time linear array sonog karan with graded compression, color doppler sonography, and spectral doppler. SIDE PERFORMED: Left FINDINGS: VESSELS IMAGED: Common Femoral Vein Deep Femoral Vein Greater Saphenous Vein * Femoral Vein Popliteal Vein Small Saphenous Vein * Proximal Calf Veins (* superficial vessels) Left Leg: Appears negative for DVT IMPRESSION: No evidence of deep vein thrombosis of the left lower extremity. [facility], , 09/08/2024 2:21 PM
== END | disposition home or self-care (01) ==
LOC: RADUSWWP 13:39
PROVIDERS: ATTEND Family Medicine
DX: R22.42 Localized swelling, mass and lump, left lower limb (principal); M79.662 Pain in left lower leg